=== PATIENT | female | born 1990 | race Caucasian/White ===

== ENCOUNTER → 2017-08-06 | Outpatient (CLI) | payer OTHER ==
[~2017-08-06] MED LIST: CONTRAST GIVEN MC
[2017-08-06] MEDS: GADOBUTROL 7.5 MMOL/7.5 ML VIAL INT ART (14:30)
[2017-08-06] MEDS: LIDOCAINE 1% Multi-Dose 20 ML VIAL. ID (14:30)
[2017-08-06] MEDS: IOHEXOL 300 MG/ML 50 ML VIAL. INT ART (14:30)
== END | disposition home or self-care (01) ==
LOC: KCIC 13:09
DX: M24.851 Other specific joint derangements of right hip, not elsewhere classified (principal); G89.29 Other chronic pain; F17.200 Nicotine dependence, unspecified, uncomplicated
CPT/HCPCS: 73525; 73722; A9585; Q9967